=== PATIENT | female | born 1945 | race Two or more races ===

== ENCOUNTER 2017-10-10 13:42 | Emergency (ER) | payer OTHER ==
[~2017-10-10] VITALS: Ht 162.6 cm; Wt 81.6 kg
== END 2017-10-10 19:16 | disposition home or self-care (01) ==
LOC: ER 13:42
DX: S50.02XA Contusion of left elbow, initial encounter (principal); S60.212A Contusion of left wrist, initial encounter; S60.211A Contusion of right wrist, initial encounter; S80.02XA Contusion of left knee, initial encounter; W18.39XA Other fall on same level, initial encounter; Y93.89 Activity, other specified; Y92.481 Parking lot as the place of occurrence of the external cause; Y99.8 Other external cause status

== ENCOUNTER 2019-08-01 12:44 | Outpatient (CLI) | payer OTHER | END 2019-08-01 12:47 | disposition home or self-care (01) | LOC: NUCLEAR 12:44 | DX: M81.0 Age-related osteoporosis without current pathological fracture (principal); N64.4 Mastodynia ==

== ENCOUNTER 2019-08-01 13:48 | Outpatient (CLI) | payer OTHER | END 2019-08-01 13:52 | disposition home or self-care (01) | LOC: MAMO-SONO 13:48 | DX: Z12.31 Encounter for screening mammogram for malignant neoplasm of breast (principal); Z87.898 Personal history of other specified conditions; N64.89 Other specified disorders of breast; M81.0 Age-related osteoporosis without current pathological fracture ==

== ENCOUNTER 2019-08-16 08:39 | Emergency (ER) | payer OTHER ==
[~2019-08-16] VITALS: Ht 162.6 cm; Wt 77.1 kg
== END 2019-08-16 13:12 | disposition home or self-care (01) ==
LOC: ER 08:39
DX: M13.88 Other specified arthritis, other site (principal); R53.81 Other malaise; Z03.818 Encounter for observation for suspected exposure to other biological agents ruled out

== ENCOUNTER → 2019-08-16 | Outpatient (CLI) | payer OTHER | END | disposition home or self-care (01) | LOC: RAD 14:15 | DX: M46.47 Discitis, unspecified, lumbosacral region (principal) ==

== ENCOUNTER 2019-08-27 07:59 | Emergency (ER) | payer OTHER ==
[~2019-08-27] VITALS: Ht 165.1 cm; Wt 74.8 kg
[2019-08-27] MEDS ORDERED: NORFLEX100MG PO (10:55)
== END 2019-08-27 10:59 | disposition home or self-care (01) ==
LOC: ER 07:59
DX: M25.50 Pain in unspecified joint (principal)

== ENCOUNTER 2020-07-10 08:35 | Outpatient (CLI) | payer OTHER ==
[~2020-07-10 08:35] MED LIST: NORFLEX100MG PO
== END 2020-07-10 08:36 | disposition home or self-care (01) ==
LOC: NUCLEAR 08:35
PROVIDERS: ATTEND Internal Medicine Cardiovascular Disease
DX: I10 Essential (primary) hypertension (principal)

== ENCOUNTER 2020-10-20 10:54 | Emergency (ER) | payer OTHER ==
[~2020-10-20] VITALS: Ht 152.4 cm; Wt 72.6 kg
[2020-10-20] MEDS ORDERED: ALLERGY RELIEF10 M3 PO (14:06)
[2020-10-20] MEDS ORDERED: TEMOVATE15 G1 TOP (14:06)
== END 2020-10-20 14:15 | disposition home or self-care (01) ==
LOC: ER 10:54
DX: L25.9 Unspecified contact dermatitis, unspecified cause (principal)

== ENCOUNTER 2021-08-17 10:38 | Outpatient (CLI) | payer OTHER ==
[~2021-08-17 10:38] MED LIST changes: +ALLERGY RELIEF10 M3 PO; +TEMOVATE15 G1 TOP
== END 2021-08-17 10:39 | disposition home or self-care (01) ==
LOC: NUCLEAR 10:38
PROVIDERS: ATTEND Internal Medicine Cardiovascular Disease
DX: M81.0 Age-related osteoporosis without current pathological fracture (principal); E55.9 Vitamin D deficiency, unspecified

== ENCOUNTER 2021-09-16 10:39 | Outpatient (CLI) | payer OTHER | END 2021-09-16 10:40 | disposition home or self-care (01) | LOC: LAB 10:39 | PROVIDERS: ATTEND Radiology Diagnostic Radiology | DX: H40.119 Primary open-angle glaucoma, unspecified eye (principal) ==

== ENCOUNTER → 2021-09-18 11:00 | Outpatient (CLI) | payer OTHER | END | disposition home or self-care (01) | LOC: MRI 11:00 | PROVIDERS: ATTEND Ophthalmology | DX: H40.1133 Primary open-angle glaucoma, bilateral, severe stage (principal) | CPT/HCPCS: 70543; Q9965; 70553 ==

== ENCOUNTER 2023-05-31 09:47 | Outpatient (CLI) | payer OTHER | END 2023-05-31 09:51 | disposition home or self-care (01) | LOC: MAMO-SONO 09:47 | PROVIDERS: ATTEND Internal Medicine Cardiovascular Disease | DX: N60.11 Diffuse cystic mastopathy of right breast (principal); N60.12 Diffuse cystic mastopathy of left breast; Z12.31 Encounter for screening mammogram for malignant neoplasm of breast ==

== ENCOUNTER 2024-05-21 11:44 | Outpatient (CLI) | payer OTHER | END 2024-05-21 11:49 | disposition home or self-care (01) | LOC: RAD 11:44 | PROVIDERS: ATTEND Internal Medicine Cardiovascular Disease | DX: M19.90 Unspecified osteoarthritis, unspecified site (principal) ==